=== PATIENT | female | born 1985 | race Two or more races ===

== ENCOUNTER 2018-12-24 02:36 | Emergency (ER) | payer OTHER ==
[2018-12-24 03:01] VITALS: TEMP 98.6; BMI 23.1
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
[2018-12-24] MEDS ORDERED: ACETAMINOPHEN 500 MG TABLET (FP) PO ONE (03:54)
[2018-12-24] MEDS ORDERED: ACETAMINOPHEN 325 MG TABLET (FP) ONE (04:04)
[2018-12-24 05:13] VITALS: BP 125/73; PULSE 89
== END 2018-12-24 05:15 | disposition home or self-care (01) ==
LOC: JER 02:36
DX: S00.03XA Contusion of scalp, initial encounter (principal); W17.89XA Other fall from one level to another, initial encounter; Y93.89 Activity, other specified; Y92.89 Other specified places as the place of occurrence of the external cause; Y99.8 Other external cause status
CPT/HCPCS: 70450-TC; 84703; 99282-25

== ENCOUNTER 2021-11-12 17:20 | Emergency (ER) | payer BC ==
[2021-11-12 17:55] VITALS: BP 133/89; PULSE 87; RESP 16; TEMP 99.4; BMI 25.2
== END 2021-11-12 18:31 | disposition home or self-care (01) ==
LOC: FER 17:20
PROC: 2W3CX1Z Immobilization of Right Lower Arm using Splint (ICD-10-PCS; principal; 2021-11-12)
DX: S62.306A Unspecified fracture of fifth metacarpal bone, right hand, initial encounter for closed fracture (principal); W22.09XA Striking against other stationary object, initial encounter
CPT/HCPCS: 73130-TC-RT-FY; 99283-25

== ENCOUNTER 2023-01-07 01:04 | Emergency (ER) | payer BC ==
[~2023-01-07 01:04] MED LIST: AZITHROMYCIN 500 MG TABLET PO ONE; DEXAMETHASONE 4 MG TABLET (FP) PO ONE; LACTATED RINGERS SOLUTION 1000 ML INFUS.BAG IV ONE
[2023-01-07] MEDS ORDERED: DEXAMETHASONE 4 MG TABLET (FP) ONE (01:11)
[2023-01-07] MEDS ORDERED: ALBUTEROL SO4 2.5/IPRATROPIUM 0.5 INH SOL 3 ML VIAL.NEB. NEB ONE ×3 (01:11→03:11)
[2023-01-07] MEDS ORDERED: AZITHROMYCIN 500 MG TABLET ONE (01:11)
[2023-01-07 01:15] VITALS: TEMP 99.1; BMI 26.6
[2023-01-07] MEDS: ALBUTEROL SO4 2.5/IPRATROPIUM 0.5 INH SOL 3 ML VIAL.NEB. NEB SCH ×4 (01:16→03:15)
[2023-01-07] MEDS ORDERED: BENZOCAINE/MENTH/CETYLPYRD CL 1 EACH LOZENGE MM PRN (02:16)
[2023-01-07] MEDS ORDERED: ACETAMINOPHEN WITH CODEINE 300MG/30MG TABLET PO ONE (02:17)
[2023-01-07] MEDS ORDERED: ACETAMINOPHEN W/ CODEINE LIQ 5 ML CUP ONE (03:11)
[2023-01-07 04:31] VITALS: BP 121/83; PULSE 81; RESP 16
== END 2023-01-07 05:21 | disposition home or self-care (01) ==
LOC: JER 01:04
PROC: 3E0F7GC Introduction of Other Therapeutic Substance into Respiratory Tract, Via Natural or Artificial Opening (ICD-10-PCS; principal; 2023-01-07)
PROC: 3E0F7GC Introduction of Other Therapeutic Substance into Respiratory Tract, Via Natural or Artificial Opening (ICD-10-PCS; 2023-01-07)
DX: R05.9 Cough, unspecified (principal); J18.9 Pneumonia, unspecified organism; Z20.822 Contact with and (suspected) exposure to COVID-19
CPT/HCPCS: 0241U-QW; 71250-TC; 84703; 93005; 93010; 99285-25